=== PATIENT | male | born 1990 | race Caucasian/White ===

== ENCOUNTER 2018-02-10 08:55 | Emergency (ER) | payer BC, OTHER ==
[2018-02-10 09:27] VITALS: BP 131/70
--- NOTE | 2018-02-10 09:49 | UC ---
Throat Pain/Nasal Neftali HPI - HPI Summary HPI Summary: 27-year-old male here with the plan of runny nose cough chest congestion wheezing. Symptoms been going on for almost a week. Patient is a smoker. He has not measured his temperature. He is allergic to DayQuil and NyQuil therefore he avoids [id number] preparations. No nausea or vomiting. He does feel short of breath. - History of Current Complaint Chief Complaint: UCRespiratory Stated Complaint: RESP ISSUE Time Seen by Provider: 02/10/18 09:39 Pain Intensity: 6 - Allergies/Home Medications Allergies/Adverse Reactions: Allergies Allergy/AdvReac Type Severity Reaction Status Date / Time acetaminophen [From NyQuil] Allergy Hives Verified 02/10/18 09:27 dextromethorphan Allergy Hives Verified 02/10/18 09:27 [From NyQuil] doxylamine [From NyQuil] Allergy Hives Verified 02/10/18 09:27 ibuprofen Allergy Hives Verified 02/10/18 09:27 [From DayQuil Sinus Pressure/Pain] pseudoephedrine Allergy Hives Verified 02/10/18 09:27 [From DayQuil Sinus Pressure/Pain] Home Medications: Home Medications Citalopram Hydrobromide [Celexa] 20 mg PO DAILY 02/10/18 [History Confirmed 06/29] PMH/Surg Hx/FS Hx/Imm Hx Respiratory History: Pneumonia - Surgical History Surgical History: Yes Surgery Procedure, Year, and Place: appendectomy - Family History Known Family History: Negative: Hypertension, Diabetes - Social History Alcohol Use: Rare Substance Use Type: None Smoking Status (MU): Light Every Day Tobacco Smoker Amount Used/How Often: 1 pk/2 days Have You Smoked in the Last Year: Yes Household Exposure Type: Cigarettes Review of Systems Constitutional: Fatigue Skin: Negative Eyes: Negative ENT: Sore Throat, Nasal Discharge, Sinus Congestion Respiratory: Shortness Of Breath, Cough, Other - WHEEZING Cardiovascular: Negative Gastrointestinal: Negative Motor: Negative Neurovascular: Negative Musculoskeletal: Negative Neurological: Negative Psychological: Negative Is Patient Immunocompromised?: No All Other Systems Reviewed And Are Negative: Yes Physical Exam Triage Information Reviewed: Yes Appearance: No Pain Distress, Well-Nourished, Ill-Appearing - MILD Vital Signs: Initial Vital Signs Temp 98.7 F 02/10/18 09:20 Pulse 72 02/10/18 09:20 Resp 18 02/10/18 09:20 BP 131/70 02/10/18 09:20 Pulse Ox 96 02/10/18 09:20 Vital Signs Reviewed: Yes Eye Exam: Normal Eyes: Positive: Conjunctiva Clear ENT: Positive: Pharyngeal erythema, Nasal congestion, Nasal drainage, TMs normal Neck exam: Normal Neck: Positive: Supple Respiratory: Positive: No respiratory distress, Wheezing Cardiovascular Exam: Normal Cardiovascular: Positive: RRR Musculoskeletal Exam: Normal Musculoskeletal: Positive: Strength Intact, ROM Intact, No Edema Neurological Exam: Normal Neurological: Positive: Alert Psychological Exam: Normal Psychological: Positive: Age Appropriate Behavior Skin Exam: Normal Throat Pain/Nasal Course/Dx - Course Course Of Treatment: DISCUSSED VIRAL VERSES BACTERIAL INFECTION AND THE ROLE OF ANTIBIOTICS. THE PATIENT WISHES TO BE ON ANTIBIOTICS AT THIS TIME. - Differential Dx/Diagnosis Provider Diagnoses: BRONCHITIS WITH BRONCHOSPASM Discharge - Sign-Out/Discharge Documenting (check all that apply): Patient Departure All imaging exams completed and their final reports reviewed: No Studies - Discharge Plan Condition: Stable Disposition: HOME Prescriptions: Albuterol HFA INHALER* [Ventolin HFA Inhaler*] 2 puff INH Q4H PRN #1 mdi PRN Reason: Wheezing Azithromyxin MO (NF) [Z-Mo (Zithromax) 250 mg tabs #6] 2 tab PO .TODAY, THEN 1 DAILY #6 tab Patient Education Materials: Acute Bronchitis (ED), Bronchospasm (ED), Wheezing (ED) Referrals: [facility] [Outside] - Billing Disposition and Condition Condition: STABLE Disposition: Home
== END 2018-02-10 10:03 | disposition home or self-care (01) ==
LOC: UCEAST 08:55
DX: J40 Bronchitis, not specified as acute or chronic (principal); J98.01 Acute bronchospasm; F17.210 Nicotine dependence, cigarettes, uncomplicated; Z88.6 Allergy status to analgesic agent; Z88.8 Allergy status to other drugs, medicaments and biological substances
CPT/HCPCS: 99212; G0463

== ENCOUNTER 2019-04-26 15:04 | Emergency (ER) | payer SELFPAY ==
[2019-04-26 15:16] VITALS: BP 125/72
--- NOTE | 2019-04-26 16:02 | UC ---
Throat Pain/Nasal Neftali HPI - HPI Summary HPI Summary: 28-year-old male presents with 3 week history of progressively worsening right sided sore throat and swollen, tender lymph nodes. No measured fever but does report frequent chills. Symptoms associated with some nasal congestion. Denies ear pain, dysphagia, trismus, cough, difficulty breathing, abdominal pain , nausea, or vomiting. - History of Current Complaint Chief Complaint: UCRespiratory Stated Complaint: THROAT PAIN Time Seen by Provider: 04/26/19 15:47 Hx Obtained From: Patient Pain Intensity: 8 - Allergies/Home Medications Allergies/Adverse Reactions: Allergies Allergy/AdvReac Type Severity Reaction Status Date / Time acetaminophen [From NyQuil] Allergy Hives Verified 04/26/19 15:16 dextromethorphan Allergy Hives Verified 04/26/19 15:16 [From NyQuil] doxylamine [From NyQuil] Allergy Hives Verified 04/26/19 15:16 ibuprofen Allergy Hives Verified 04/26/19 15:16 [From DayQuil Sinus Pressure/Pain] pseudoephedrine Allergy Hives Verified 04/26/19 15:16 [From DayQuil Sinus Pressure/Pain] Home Medications: Home Medications NK [No Home Medications Reported] 04/26/19 [History Confirmed 04/26/19] PMH/Surg Hx/FS Hx/Imm Hx Previously Healthy: Yes - Denies significant PMH - Surgical History Surgical History: Yes Surgery Procedure, Year, and Place: appendectomy - Family History Known Family History: Positive: Non-Contributory - Social History Occupation: Employed Full-time Lives: With Family Alcohol Use: Rare Substance Use Type: None Smoking Status (MU): Light Every Day Tobacco Smoker Amount Used/How Often: 1 pk/2 days Have You Smoked in the Last Year: Yes Household Exposure Type: Cigarettes Review of Systems All Other Systems Reviewed And Are Negative: Yes Constitutional: Positive: Fever - Sub, Chills Skin: Negative: Rash Eyes: Negative: Drainage, Eye Redness ENT: Positive: Sore Throat, Nasal Discharge, Sinus Congestion. Negative: Ear Ache, Sinus Pain/Tenderness Respiratory: Negative: Shortness Of Breath, Cough Cardiovascular: Negative: Palpitations, Chest Pain Gastrointestinal: Negative: Abdominal Pain, Vomiting, Diarrhea, Nausea Genitourinary: Positive: Negative Musculoskeletal: Positive: Negative Neurological: Positive: Negative Is Patient Immunocompromised?: No Physical Exam - Summary Physical Exam Summary: GENERAL APPEARANCE: Well developed, well nourished, alert and cooperative, and appears to be in no acute distress. EYES: Conjunctiva clear. No drainage. EARS: Left external auditory canal and tympanic membrane clear. Right TM perforation with thick white discharge within the ear canal. NOSE: Mild nasal congestion. No nasal discharge. THROAT: Pharyngeal erythema. 2+ tonsils with exudate. The right tonsil is shifted toward the midline. Uvula remains midline. NECK: Neck supple. Significant anterior tonsillar lymphadenopathy with tenderness. CARDIAC: Normal S1 and S2. No S3, S4 or murmurs. Rhythm is regular. There is no peripheral edema, cyanosis or pallor. Extremities are warm and well perfused. Capillary refill is less than 2 seconds. Peripheral pulses intact. LUNGS: Clear to auscultation without rales, rhonchi, wheezing or diminished breath sounds. ABDOMEN: Positive bowel sounds. Soft, nondistended, nontender. No guarding or rebound. No masses or hepatosplenomegally. MUSKULOSKELETAL: ROM intact to all extremities. No joint erythema or tenderness. Normal muscular development. Normal gait. SKIN: Skin normal color, texture and turgor with no lesions or eruptions. Triage Information Reviewed: Yes Vital Signs: Initial Vital Signs Temp 99.7 F 04/26/19 15:10 Pulse 98 04/26/19 15:10 Resp 16 04/26/19 15:10 BP 125/72 04/26/19 15:10 Pulse Ox 97 04/26/19 15:10 Vital Signs Reviewed: Yes Throat Pain/Nasal Course/Dx - Course Course Of Treatment: 28-year-old male presents with 3 week history of progressively worsening right sided sore throat and swollen, tender lymph nodes. No measured fever but does report frequent chills. Symptoms associated with some nasal congestion. Denies ear pain, dysphagia, trismus, cough, difficulty breathing, abdominal pain , nausea, or vomiting. Afebrile. Vital signs stable. She had mild nasal congestion, pharyngeal erythema, 2+ tonsils with exudate, the right tonsil is shifted toward the midline however the uvula remains midline, significant anterior tonsillar lymphadenopathy with tenderness, and otherwise unremarkable exam. I discussed with the patient that I am concerned for a peritonsillar abscess so I spoke with ENT who will see the patient in their office at this time. Patient is agreeable to this and is to go directly to the ENT office from here via private vehicle for further evaluation and treatment. - Differential Dx/Diagnosis Differential Diagnosis/HQI/PQRI: Mononucleosis, Peritonsillar Abscess, Pharyngitis, Tonsillitis, URI Provider Diagnosis: Peritonsillar abscess Discharge ED - Sign-Out/Discharge Documenting (check all that apply): Patient Departure All imaging exams completed and their final reports reviewed: No Studies - Discharge Plan Condition: Stable Disposition: HOME Patient Education Materials: Peritonsillar Abscess (ED) Referrals: No Primary Care Phys,NOPCP [Primary Care Provider] - Fabiano Barker MD [Medical Doctor] - As Soon As Possible (Go directly to the office from here.) Additional Instructions: I am concerned that you may have a peritonsillar abscess. I have spoken with the Ear, Nose, and Throat specialist and hepatitis C you in the office now. Please go directly to their office from here as they are expecting you before for 4:45 PM. - Billing Disposition and Condition Condition: STABLE Disposition: Home
== END 2019-04-26 16:31 | disposition home or self-care (01) ==
LOC: UCEAST 15:04
DX: J36 Peritonsillar abscess (principal); F17.210 Nicotine dependence, cigarettes, uncomplicated; Z88.8 Allergy status to other drugs, medicaments and biological substances
CPT/HCPCS: 87651; 99211; G0463

== ENCOUNTER 2019-04-29 18:41 | Emergency (ER) | payer SELFPAY ==
--- NOTE | 2019-04-29 21:02 | ED ---
Allergic Reaction/Systemic - HPI Summary HPI Summary: 28-year-old male significant past medical history presents to emergency department today complaining of allergic reaction. He states he was seen after communicator on Friday04/26/2019 and diagnosed with cyst to his neck and advised to follow-up with ENT in a week. He states he is given clindamycin, ibuprofen, prednisone for symptoms however his symptoms are not better at this time. He did not follow-up with ENT and he believes he is having allergic reaction to one of the meds he was given. He states last few days since he was seen at the urgent care he has been having hives. He is not sure which medication to be causing his symptoms. He endorses last night having difficult breathing and feeling like "my throat was closing up". He is currently in no distress. He denies fever, chest pain, abdominal pain cramping with urination, difficult to manage managing secretions, difficulty breathing, difficulty eating , urination, rash. Family history and social history. - History of Current Complaint Chief Complaint: EDThroatPain Time Seen by Provider: 04/29/19 20:57 Hx Obtained From: Patient Onset/Duration: Gradual Onset, Started days ago Timing: Intermittent Severity Initially: Moderate Severity Currently: Moderate Pain Intensity: 8 Pain Scale Used: 0-10 Numeric Character: Pruritus, Hives Associated Signs And Symptoms: Positive: Rash. Negative: Chest Pain, Cough Wheezing, Diaphoresis, Hoarseness, Nausea, Throat Tightening, Vomiting - Related Hx Possible Reaction To: Medications - clindamycin - Allergies/Home Medications Allergies/Adverse Reactions: Allergies Allergy/AdvReac Type Severity Reaction Status Date / Time dextromethorphan Allergy Hives Verified 04/29/19 19:02 [From NyQuil] doxylamine [From NyQuil] Allergy Hives Verified 04/29/19 19:02 prednisone Allergy Hives Verified 04/29/19 20:56 pseudoephedrine Allergy Hives Verified 04/29/19 19:02 [From DayQuil Sinus Pressure/Pain] PMH/Surg Hx/FS Hx/Imm Hx - Surgical History Surgery Procedure, Year, and Place: appendectomy Infectious Disease History: No Infectious Disease History: Denies: Traveled Outside the [place] in Last 30 Days - Family History Known Family History: Positive: Non-Contributory - Social History Alcohol Use: Occasionally Substance Use Type: Reports: None Smoking Status (MU): Heavy Every Day Tobacco Smoker Amount Used/How Often: 1 pk/2 days Have You Smoked in the Last Year: Yes Review of Systems Constitutional: Negative Eyes: Negative ENT: Negative Cardiovascular: Negative Respiratory: Negative Gastrointestinal: Negative Genitourinary: Negative Musculoskeletal: Negative Positive: Rash Neurological: Negative Psychological: Normal All Other Systems Reviewed And Are Negative: Yes Physical Exam - Summary Physical Exam Summary: Urticaria noted to the upper extremities and upper torso Triage Information Reviewed: Yes Vital Signs On Initial Exam: Initial Vitals Temp Pulse Resp BP Pulse Ox 97.3 F 95 16 123/84 98 04/29/19 18:55 04/29/19 18:55 04/29/19 18:55 04/29/19 18:55 04/29/19 18:55 Vital Signs Reviewed: Yes Appearance: Positive: Well-Appearing, No Pain Distress, Well-Nourished Skin: Positive: Warm, Skin Color Reflects Adequate Perfusion Eyes: Positive: Normal, EOMI ENT: Positive: Hearing grossly normal Respiratory/Lung Sounds: Positive: Clear to Auscultation, Breath Sounds Present Cardiovascular: Positive: Normal, RRR, S1, S2 Abdomen Description: Positive: Nontender, Soft Bowel Sounds: Positive: Present Musculoskeletal: Positive: Strength/ROM Intact Neurological: Positive: Sensory/Motor Intact, Alert, Oriented to Person Place, Time, Normal Gait, Speech Normal Psychiatric: Positive: Normal AVPU Assessment: Alert Procedures - Sedation Patient Received Moderate/Deep Sedation with Procedure: No Diagnostics - Vital Signs Vital Signs Temp Pulse Resp BP Pulse Ox 04/29/19 18:55 97.3 F 95 16 123/84 98 - Laboratory Lab Statement: Any lab studies that have been ordered have been reviewed, and results considered in the medical decision making process. Allergic Reaction Course/Dx - Course Course Of Treatment: Patient seen and examined. Patient was told to stop taking his clindamycin and was given Bactrim for continued treatment of his cyst. He was told to take Benadryl daily for alleviation of his allergic reaction. He was told to follow-up with his primary care physician. Patient had no signs of airway involvement or angioedema. - Diagnoses Differential Diagnosis/HQI/PQRI: Positive: Anaphylaxis, Angioedema, Urticaria Provider Diagnoses: Allergy to antibacterial drug Discharge ED - Sign-Out/Discharge Documenting (check all that apply): Patient Departure - Discharge Plan Condition: Stable Disposition: HOME Prescriptions: Sulfamethox/Trimethoprim DS* [Bactrim DS 800/160 TAB*] 1 tab PO BID #14 tab Patient Education Materials: Urticaria (ED), Anaphylaxis (ED) Forms: *Work Release Referrals: Fabiano Barker MD [Medical Doctor] - 3 Days No Primary Care Phys,NOPCP [Primary Care Provider] - Additional Instructions: you were seen in the emergency department today for an allergic reaction. I'm uncertain which medication is causing your symptoms however please stop taking your prednisone and clindamycin. I prescribed an antibiotic called Bactrim to be taken twice daily. Please follow-up with ENT in 3 days for further evaluation and management of your cyst. Please return to the emergency department immediately if you develop any new or worsening symptoms. - Billing Disposition and Condition Condition: STABLE Disposition: Home
[2019-04-29] MEDS: Sulfamethox/Trimethoprim DS 800/160* TAB PO ONE (21:43)
[2019-04-29 22:11] VITALS: BP 129/69
== END 2019-04-29 22:10 | disposition home or self-care (01) ==
LOC: ED 18:41
DX: T36.8X5A Adverse effect of other systemic antibiotics, initial encounter (principal); Y92.9 Unspecified place or not applicable; F17.200 Nicotine dependence, unspecified, uncomplicated; Z90.89 Acquired absence of other organs; Z88.8 Allergy status to other drugs, medicaments and biological substances
CPT/HCPCS: 99282; A9270-GY